=== PATIENT | female | born 1960 | race Caucasian/White ===

== ENCOUNTER 2020-04-10 08:52 | Outpatient (CLI) | payer OTHER, SELFPAY ==
[2020-04-10 09:16] LABS: Basophils Absolute Auto 0.11 K/mm3 (0.00-0.10); Basophils Percent Auto 1.4 % (0.0-1.0); Eosinophils Absolute Auto 0.33 K/mm3 (0.02-0.50); Eosinophils Percent Auto 4.2 % (1.0-6.0); Hematocrit 42.5 % (35.0-49.0); Hemoglobin 13.7 g/dL (12.0-15.0); Immature Granulocyte Absolute 0.03 K/mm3 (0.00-0.00); Immature Granulocyte Percent A 0.4 % (0.0-0.0); Lymphocytes Absolute Auto 2.22 K/mm3 (1.10-4.50); Lymphocytes Percent Auto 28.2 % (18.0-42.0); Mean Corpuscular HGB Conc 32.2 g/dL (32.0-36.0); Mean Corpuscular Hemoglobin 29.8 pg (27.0-31.0); Mean Corpuscular Volume 92.4 fL (78.0-102.0); Mean Platelet Volume 9.7 fl (9.2-11.8); Monocytes Absolute Auto 0.57 K/mm3 (0.10-0.90); Monocytes Percent Auto 7.2 % (2.0-11.0); Neutrophils Absolute Auto 4.6 K/mm3 (1.7-7.2); Neutrophils Percent Auto 58.6 % (50.0-70.0); Platelet Count Result 180 K/mm3 (150-420); Red Cell Distribution Width 12.6 % (11.6-14.4); White Blood Count 7.9 K/mm3 (4.8-10.8)
[2020-04-10 09:39] LABS: Alanine Aminotransferase 24 U/L (14-59); Albumin Level 3.9 g/dL (3.4-5.0); Alkaline Phosphatase 89 U/L (46-116); Anion Gap 8 mmol/L (8-16); Aspartate Amino Transferase 25 U/L (15-37); Bilirubin,Total 0.4 mg/dL (0.00-1.00); Blood Urea Nitrogen 10 mg/dL (7-18); Calcium 9.1 mg/dL (8.5-10.1); Carbon Dioxide 28 mmol/L (21-32); Chloride 102 mmol/L (98-108); Cholesterol 293 mg/dL (0-200); Estimated Glomerular Filt Rate > 60; Glucose 100 mg/dL (70-99); HDL Direct 59 mg/dL (40-60); LDL Cholesterol Calculated 187 mg/dL (<130); Osmolality Calculated 285 mOsm/kg (285-295); Potassium 4.1 mmol/L (3.5-5.1); Sodium 138 mmol/L (136-145); Total Protein 7.1 g/dL (6.4-8.2); Triglycerides 236 mg/dL (0-150)
== END 2020-04-10 08:53 | disposition home or self-care (01) ==
LOC: CHSLAB 08:54
PROVIDERS: PCP Nurse Practitioner Family; Visit Provider Nurse Practitioner Family
DX: I10 Essential (primary) hypertension (principal)
CPT/HCPCS: 36415; 80053; 80061; 85025

== ENCOUNTER → 2020-04-29 10:55 | Outpatient (CLI) | payer OTHER, SELFPAY ==
--- NOTE | ~2020-04-29 | MM_ITS ---
EXAMINATION: MM screening terri BI w beena HISTORY: Screening mammogram TECHNIQUE: Craniocaudal and mediolateral oblique 3-D tomosynthesis images were obtained and synthetic 2-D images were generated. CAD analysis was submitted and interpreted. COMPARISON: 11/28/2017, 09/20/2016, 08/13/2015 bilateral digital screening mammogram examinations BREAST PARENCHYMAL COMPOSITION: There are scattered areas of fibroglandular density. FINDINGS: There is no evidence of suspicious mass, calcification, or architectural distortion to sugg est malignancy in either breast. There has been no suspicious interval change. IMPRESSION: 1. No mammographic evidence of malignancy. 2. Recommend routine screening mammography in one year. BI-RADS Category 1: Negative Reviewed, dictated and finalized at location A.
== END ==
PROVIDERS: PCP Nurse Practitioner Family; Visit Provider Nurse Practitioner Family
DX: Z12.31 Encounter for screening mammogram for malignant neoplasm of breast (principal)
CPT/HCPCS: 77063; 77067

== ENCOUNTER 2020-05-10 16:20 | Outpatient (CLI) | payer OTHER, SELFPAY ==
--- NOTE | ~2020-05-10 | XR_ITS ---
EXAMINATION: XR_[id number]_CR DATE: 05/10/2020 16:39 INDICATION: Cervical radiculopathy. TECHNIQUE: 3 views of cervical spine on 4 radiographs were obtained. COMPARISON: Cervical spine radiographs 03/27/2013 FINDINGS: There is 6 degrees dextrocurvature of cervical spine. There is kyphosis of cervical spine. There is 2 mm retrolisthesis of C5 on C6. Vertebral body heights are normal. There is mildly decrease d disc height at C4-C5, moderately decreased disc height at C5-C6, and mildly decreased disc height a t C6-C7. There is severe bilateral uncovertebral joint osteoarthritis at C5-C6 and C6-C7. The facet j oints are unremarkable. There is mild central canal stenosis at C5-C6. No prevertebral soft tissue sw elling. IMPRESSION: 1. Moderate cervical spondylosis. Reviewed, dictated and finalized at location A. RGLASS ROVING WINDER
== END 2020-05-10 16:21 | disposition home or self-care (01) ==
LOC: CHSIMG 16:25
PROVIDERS: PCP Nurse Practitioner Family; Visit Provider Family Medicine
DX: M54.12 Radiculopathy, cervical region (principal)
CPT/HCPCS: 72040

== ENCOUNTER 2020-05-11 15:01 | Outpatient (RCR) | payer OTHER, SELFPAY ==
--- NOTE | 2020-05-25 16:09 | PCPTNOTE ---
patient called and cancelled appt today. JN
--- NOTE | 2020-06-10 16:38 | PTOPEVAL ---
Thank you for referring Santiago Medina to [facility].? The patient is scheduled to be seen for therapy? ____x/week for ___ weeks. Please review, sign, date and return this plan of care PAVITHRA. I agree with and certify that the following plan of care is medically necessary. Referring Physician Date Admitting Provider: Attending Provider: Marcin Flores DO Referring Provider: *PT Outpatient Evaluation Start: 05/11/20 15:20 Freq: Status: Active Protocol: Document 05/11/20 15:20 [facility] (Rec: 05/11/20 16:11 [facility] [id number]) Therapy Assessment Status Assessment Status Assessment Status Evaluation Evaluation Information Problem Diagnosis cervical radiculopathy Onset 05/06/20 Additional Evaluation Detail NDI = 20% functionally declined Subjective Information patient reports she has been Query Text:As Reported By Patient/ having pain in the neck and Family down the L arm for a while, but reports it has gotten worse in the past 3 months. she reports the pain will go down her arm all the way to the tips of her fingers. she reports the tingling will hit all fingers. she reports all the time in the 1st 2 digits, but worse in the last 3 digits at times. she reports she has increased pain with looking over her L shoulder such as while driving, looking over her shoulder to talk to a person, and while looking over he shoulder at her desk at work. she reports she has an adjustable height desk. she reports she has been to therapy in the past for her sciatic nerve. Prior Level of Function Comments Additional Prior Level of Function patient reports she has had Comments issues with her neck for about 10 years or so. however, she reports until recently she has mostly dealt with symptoms that would come and go. patient reports she does experience headaches (worse after work/later in the day). Pain Assessment Timing of Pain Assessment Timing of Pain Assessment
--- NOTE | 2020-07-07 13:20 | PTOPEVAL ---
Thank you for referring Santiago Medina to [facility].? The patient is scheduled to be seen for therapy? ____x/week for ___ weeks. Please review, sign, date and return this plan of care PAVITHRA. I agree with and certify that the following plan of care is medically necessary. Referring Physician Date Admitting Provider: Attending Provider: Marcin Flores DO Referring Provider: *PT Outpatient Evaluation Start: 05/11/20 15:20 Freq: Status: Active Protocol: Document 06/22/20 16:00 [facility] (Rec: 07/07/20 10:26 [facility] [id number]) Therapy Assessment Status Assessment Status Assessment Status Re-evaluation Evaluation Information Problem Diagnosis cervical radiculopathy Subjective Information patient reports she feels Query Text:As Reported By Patient/ alright this date. she Family reports she has less pain in the neck and nearly no symptoms down her L arm any longer. Pain Assessment Timing of Pain Assessment Timing of Pain Assessment Assessment Pain Scale Pain Scale Used Numeric (1 - 10) Self Report Pain Assessment Neck Reported Pain Level 1 Pain Score Pain Score 1: Self Report Additional Pain Score Comments patient treatment supervised by Cathryn Wilson PTA this date. Interventions Used Interventions Used By Clinicians Activity or ADL's,Education, Electrical Stimulation, Exercise,Heat,Manual Therapy Techniques Cervical and Lumbar ROM Cervical ROM Cervical Flexion (0-60) 50 Query Text:Active in Degrees Cervical Extension (0-70) 40 Query Text:Active in Degrees Cervical Lateral Flexion Right (0-50) 30 Query Text:Active in Degrees Cervical Lateral Flexion Left (0-50) 30 Query Text:Active in Degrees Cervical Rotation Right (0-90) 70 Query Text:Active in Degrees Cervical Rotation Left (0-90) 55 Query Text:Active in Degrees Cervical and Lumbar Muscle Testing Cervical Muscle Testing Cervical Flexion 4 Good Cervical Extension 4 Good Cervical Lateral Flexion Right 4+ Good+ Cervical Lateral Flexion Left 4+ Good+ Deep Cervical Flexion 4/5 Muscle Length Testing Muscle Length Testing Upper Trapezius Muscle Length (L) Mild Tightness General Exercise General Exercises Exercise Description see Cathryn Wilson Documentation. Query Text:Record Sets, Reps, Resistance, and Position PT Clinical Summary Clinical Summary Protocol: PTEVCODE PT Clinical Summary mrs. medina tolerates therapy well this date. she repo
== END 2020-07-07 09:47 | disposition home or self-care (01) ==
LOC: CHSPT 15:01
PROVIDERS: PCP Family Medicine; Visit Provider Family Medicine
DX: M54.12 Radiculopathy, cervical region (principal)
CPT/HCPCS: 97012; 97014; 97110; 97140; 97161; G0283

== ENCOUNTER 2020-08-11 17:39 | Outpatient (NON) | payer OTHER, SELFPAY | END 2020-08-11 17:40 | LOC: CHSLAB 17:40 | PROVIDERS: Visit Provider Nurse Practitioner Family | DX: Z12.4 Encounter for screening for malignant neoplasm of cervix (principal); Z13.89 Encounter for screening for other disorder | CPT/HCPCS: 87491; 87591; 88175; G0145 ==

== ENCOUNTER → 2021-05-27 16:38 | Outpatient (CLI) | payer OTHER, SELFPAY ==
--- NOTE | ~2021-05-27 | MM_ITS ---
EXAMINATION: MM screening [facility] BI w beena HISTORY: Screening mammogram TECHNIQUE: Craniocaudal and mediolateral oblique 3-D tomosynthesis images were obtained and synthetic 2-D images were generated. CAD analysis was submitted and interpreted. COMPARISON: 04/29/2020, 11/28/2017 BREAST PARENCHYMAL COMPOSITION: The breasts are heterogeneously dense, which may obscure small masses . FINDINGS: There is no evidence of suspicious mass, calcification, or architectural distortion to sugg est malignancy in either breast. There has been no suspicious interval change. IMPRESSION: 1. No mammographic evidence of malignancy. 2. Recommend routine screening mammography in one year. BI-RADS Category 1: Negative Reviewed, dictated and finalized at location A. T METAL FABRICATOR
== END ==
PROVIDERS: Visit Provider Nurse Practitioner Family
DX: Z12.31 Encounter for screening mammogram for malignant neoplasm of breast (principal)
CPT/HCPCS: 77063; 77067

== ENCOUNTER 2022-01-21 07:23 | Outpatient (CLI) | payer OTHER, SELFPAY ==
[2022-01-21 08:02] LABS: SARS-CoV-2 Ag Positive (Negative)
[2022-01-21 08:18] LABS: SARS-CoV-2 RNA PCR Positive (Negative)
[2022-01-21 11:45] LABS: Cholesterol 154 mg/dL (0-200); HDL Direct 62 mg/dL (40-60); LDL Cholesterol Calculated 72 mg/dL (<130); Triglycerides 101 mg/dL (0-150)
== END 2022-01-21 07:24 | disposition home or self-care (01) ==
PROVIDERS: PCP Nurse Practitioner Family; Visit Provider Nurse Practitioner Family
DX: U07.1 COVID-19 (principal); E78.1 Pure hyperglyceridemia; E78.5 Hyperlipidemia, unspecified
CPT/HCPCS: 36415; 80061; 87426; C9803; U0003; U0005

== ENCOUNTER 2022-08-08 08:29 | Outpatient (CLI) | payer OTHER, SELFPAY ==
--- NOTE | ~2022-08-08 | DEXA_ITS ---
Bone Density Report Name: BLACK SÁNCHEZ Age: 62 Sex: Female Ethnicity: White Date of : 1960 Indication: postmenopausal; screening for osteoporosis; asthma or emphysema; Referring Provider: Kimberley Foster Study: Bone densitometry was performed. Exam Date: August 08, 2022 Accession number: [id number] Bone Density: Region BMD T-score Z-score Classification AP Spine(L2, L3, L4) 0.888 -1.7 -0.3 Osteopenia Femoral Neck (Left) 0.655 -1.8 -0.5 Osteopenia Total Hip (Left) 0.829 -0.9 0.0 Normal Femoral Neck (Right) 0.646 -1.8 -0.5 Osteopenia Total Hip (Right) 0.832 -0.9 0.1 Normal Femoral Neck Mean 0.650 -1.8 -0.5 Osteopenia Total Hip Mean 0.831 -0.9 0.0 Normal World Health Organization criteria for BMD impression classify patients as: Normal (T-score at or above -1.0), Osteopenia (T-score between -1.0 and -2.5), or Osteoporosis (T-score at or below -2.5). 10-year Fracture Risk(1): Major Osteoporotic Fracture 8.8% Hip Fracture 0.9% Reported Risk Factors: [place] (), Neck BMD=0.646, BMI=29.6 (1) FRAX(R) Version 3.08. Fracture probability calculated for an untreated patient. Fracture probability may be lower if the patient has received treatment. Clinical Information Provided by Patient: Has used the following medications: Vitamin D Has the following medical conditions: Asthma or Emphysema Patient maximum height was 62 Menopause Age: 62 No regular weight bearing exercise Does not regularly consume dairy products Onset of menses at age 14 Number of children 3 Impression: The patient has low bone mass, based on the Left Femoral Neck T-score. Discussion: BONE DENSITY IS LOW AT ONE OR MORE SKELETAL SITES. This patient's lowest T-score is low at one or more skeletal sites. It meets the World Health Organization's (WHO) criteria for ?low bone mass? (T-score between -1.0 and -2.5). The patient's 10-year risk of fracture as calculated by FRAX is less than the threshold where pharmacological therapy is recommended by the National Osteoporosis Foundation (NOF). However, all treatment decisions require clinical judgment and consideration of individual patient factors, including patient preferences, comorbidities, previous drug use, risk factors not captured in the FRAX model (e.g., frailty, falls, vitamin D deficiency, increased bone turnover, interval significant decline in bone density) and possible under or overestimation of fracture risk by FRAX. The patient should follow a healthful lifestyle (good nutrition with adequate calcium and vitamin D, and appropriate weight-bearing exercise). Follow-Up: Consider repeating this study in 2 to 3 years to reassess this patient's status, or sooner if there is some new clinical indication. Reported by: Dr. Rogers
== END 2022-08-08 08:30 | disposition home or self-care (01) ==
LOC: CHSIMG 08:31
PROVIDERS: PCP Nurse Practitioner Family; Visit Provider Obstetrics & Gynecology Gynecology
DX: Z78.0 Asymptomatic menopausal state (principal); M85.89 Other specified disorders of bone density and structure, multiple sites
CPT/HCPCS: 77080

== ENCOUNTER → 2022-08-17 15:03 | Outpatient (CLI) | payer OTHER, SELFPAY ==
--- NOTE | ~2022-08-17 | MM_ITS ---
EXAMINATION: MM screening terri BI w beena HISTORY: Screening mammogram TECHNIQUE: Craniocaudal and mediolateral oblique 3-D tomosynthesis images were obtained and synthetic 2-D images were generated. CAD analysis was submitted and interpreted. COMPARISON: 05/27/2021, 04/29/2020, 11/28/2017 bilateral screening mammogram examinations BREAST PARENCHYMAL COMPOSITION: The breasts are heterogeneously dense, which may obscure small masses . FINDINGS: There is no evidence of suspicious mass, calcification, or architectural distortion to sugg est malignancy in either breast. There has been no suspicious interval change. IMPRESSION: 1. No mammographic evidence of malignancy. 2. Recommend routine screening mammography in one year. BI-RADS Category 1: Negative Reviewed, dictated and finalized at location A. LOGY LABORATORY MANAGER
== END ==
PROVIDERS: PCP Nurse Practitioner Family; Visit Provider Nurse Practitioner Family
DX: Z12.31 Encounter for screening mammogram for malignant neoplasm of breast (principal)
CPT/HCPCS: 77063; 77067

== ENCOUNTER 2022-10-09 07:31 | Day surgery (SDC) | payer OTHER, SELFPAY ==
[2022-08-29 08:23] VITALS: BMI 30.8
[2022-09-25 14:22] VITALS: BMI 29.8
--- NOTE | 2022-10-09 07:34 | WPDANESEPPF ---
Anes - Initial Pre Proc Eval Procedure: Operation Date: 10/09/22 08:30 Proposed Procedures p Diagnostic Colonoscopy - Shawn Nuñez MD Date/Time: 10/09/22 07:34 Surgeon: Shawn Nuñez MD Pre Op Diagnosis: History of Colon Polyps Patient Data Age: 62 Gender: F Height: 1.57 m Weight: 74 kg Allergies Allergy/AdvReac Type Severity Reaction Status Date / Time codeine Allergy Intermediate Rash Verified 10/09/22 07:47 Penicillins Allergy Intermediate Rash Verified 10/09/22 07:47 propoxyphene Allergy Mild n/v Verified 10/09/22 07:47 morphine Allergy Unknown Rash Verified 10/09/22 07:47 Sulfa (Sulfonamide Allergy Unknown Rash Verified 10/09/22 07:47 Antibiotics) Home Medications Medication Instructions Recorded Confirmed Type albuterol sulfate 90 mcg/actuation 1 inhalation inhalation Q4-6H PRN 05/21/19 09/25/22 Rx breath activated powder inhaler shortness of breath or wheezing #1 ea ergocalciferol (vitamin D2) 1,250 1,250 mcg PO WEEKLY 10/03/21 09/25/22 History mcg (50,000 unit) capsule hydrocortisone acetate 25 mg 25 mg RECTAL BID #24 ea 10/03/21 09/05/22 Rx rectal suppository (Anusol-HC) linaclotide 290 mcg capsule See Rx Instructions .Route 10/31/21 09/25/22 Rx (Linzess) .COMPLEX #30 caps valacyclovir 500 mg tablet 500 mg PO BID 3 days #6 tabs 07/04/22 09/25/22 Rx fluoxetine 40 mg capsule See Rx Instructions .Route 08/04/22 09/25/22 Rx .COMPLEX #90 caps sodium,potassium,mag sulfates 17.5 See Rx Instructions PO .COMPLEX 08/29/22 09/05/22 Rx gram-3.13 gram-1.6 gram oral soln #354 mL (Suprep Bowel Prep Kit) aspirin 81 mg tablet,delayed 81 mg PO DAILY 09/25/22 09/25/22 History release ezetimibe 10 mg tablet 10 mg PO DAILY 09/25/22 09/25/22 History spironolactone 100 mg tablet 100 mg PO DAILY 09/25/22 09/25/22 History Patient hx anesthesia problems: none Family hx anesthesia problems: none Results Review: All pre-operative results and documents have been reviewed as part of the pre-operative evaluation. [facility] Past Medical History Medical History (Updated 10/09/22 @ 07:35 by Romario Snyder MD) Asthma ALEJANDRA (generalized anxiety disorder) GERD without esophagitis HSV-1 infection Hypertension Marijuana smoker Obese Surgical History Surgical History History of carpal tunnel surgery (~1997) History of cholecystectomy (~08/2012) History of hysterectomy (~02/2001) Partial History of tonsillectomy (~1967) Family History Family History Grandparent Family history of obesity Family history of alcoholism Cerebrovascular accident Diabetes mellitus Lung cancer Mother Hypertension Family history of eczema Patient's mother is in good health Family history of arthritis Acute myocardial infarction Sibling Hypertension Family history of eczema Patient's brother is in good health Family history of irritable bowel syndrome Father Patient's father is in good health Family history of arthritis Mother Acute myocardial infarction Hypertension Other Asthma Family history of allergic disorder Family history of cardiovascular disease Family history of gout Family history of malignant neoplasm Family history of malignant neoplasm of breast Social History Social History Smoking status: Never smoker Tobacco type: cigarettes Smoking end date: 04/08/13 Alcohol intake: never Substance use: never Substance use type: does not use Living arrangements: with family Gender identity (if verbalized by the patient): Female Spiritual care concerns: No Anes - Eval Final PreProcedure Day of Procedure 10/09/22 07:34 Patient weight: overweight Heart: regular rate and rhythm Lungs: clear to auscultation and normal air movement Airway: Mallampati scale class II Neurological
[2022-10-09 07:45] VITALS: BP 117/86; PULSE 84; RESP 16; TEMP 37.4; O2SAT 98
[2022-10-09] MEDS: LACTATED RINGERS 1,000 ML 150 ML IV CONT (08:00)
--- NOTE | 2022-10-09 08:28 | PM.HPGS ---
History of Present Illness History of Present Illness Consent: Risks, benefits, and alternatives have been discussed and questions answered. Patient agrees to proceed with procedure. Chief complaint: History of Colon Polyps Narrative: Santiago Medina is a 62 year old female Presents for screening colonoscopy. Patient does have a prior history of colon polyps. Most recent colonoscopy was 6 years ago. Patient reports that her current weight and appetite are normal. Patient does have a tendency towards constipation. She occasionally has bright red blood per rectum with wiping that she attributes to hemorrhoids. Family history is Significant the both mother and father have had colon polyps.. Patient presents today for screening colonoscopy. Review of Systems Review of Systems: Review of systems noncontributory. [facility] Past Medical History Medical History (Updated 10/09/22 @ 08:30 by Shawn Nuñez MD) Asthma ALEJANDRA (generalized anxiety disorder) GERD without esophagitis HSV-1 infection Hypertension Marijuana smoker Obese Surgical History Surgical History History of carpal tunnel surgery (~1997) History of cholecystectomy (~08/2012) History of hysterectomy (~02/2001) Partial History of tonsillectomy (~1967) Family History Family History Grandparent Family history of obesity Family history of alcoholism Cerebrovascular accident Diabetes mellitus Lung cancer Mother Hypertension Family history of eczema Patient's mother is in good health Family history of arthritis Acute myocardial infarction Sibling Hypertension Family history of eczema Patient's brother is in good health Family history of irritable bowel syndrome Father Patient's father is in good health Family history of arthritis Mother Acute myocardial infarction Hypertension Other Asthma Family history of allergic disorder Family history of cardiovascular disease Family history of gout Family history of malignant neoplasm Family history of malignant neoplasm of breast Social History Social History Smoking status: Never smoker Tobacco type: cigarettes Smoking end date: 04/08/13 Alcohol intake: never Substance use: never Substance use type: does not use Living arrangements: with family Gender identity (if verbalized by the patient): Female Spiritual care concerns: No Meds Home Medications and Allergies Home Medications Medication Instructions Recorded Confirmed Type albuterol sulfate 90 mcg/actuation 1 inhalation inhalation Q4-6H PRN 05/21/19 10/09/22 Rx breath activated powder inhaler shortness of breath or wheezing #1 ea ergocalciferol (vitamin D2) 1,250 1,250 mcg PO WEEKLY 10/03/21 10/09/22 History mcg (50,000 unit) capsule hydrocortisone acetate 25 mg 25 mg RECTAL BID #24 ea 10/03/21 10/09/22 Rx rectal suppository (Anusol-HC) linaclotide 290 mcg capsule See Rx Instructions .Route 10/31/21 10/09/22 Rx (Linzess) .COMPLEX #30 caps valacyclovir 500 mg tablet 500 mg PO BID 3 days #6 tabs 07/04/22 10/09/22 Rx fluoxetine 40 mg capsule See Rx Instructions .Route 08/04/22 10/09/22 Rx .COMPLEX #90 caps sodium,potassium,mag sulfates 17.5 See Rx Instructions PO .COMPLEX 08/29/22 10/09/22 Rx gram-3.13 gram-1.6 gram oral soln #354 mL (Suprep Bowel Prep Kit) aspirin 81 mg tablet,delayed 81 mg PO DAILY 09/25/22 10/09/22 History release ezetimibe 10 mg tablet 10 mg PO DAILY 09/25/22 10/09/22 History spironolactone 100 mg tablet 100 mg PO DAILY 09/25/22 10/09/22 History Allergies Allergy/AdvReac Type Severity Reaction Status Date / Time codeine Allergy Intermediate Rash Verified 10/09/22 07:47 Penicillins Allergy Intermediate Rash Verified 10/09/22 07:47 propoxyphene Allergy Mild n/v Verified 10/09/22 07:47 mor
[2022-10-09 09:00] VITALS: BP 110/79; PULSE 75; RESP 16; O2SAT 96
[2022-10-09 09:10] VITALS: BP 125/95; PULSE 69; RESP 16; O2SAT 99
[2022-10-09 09:20] VITALS: BP 107/78; PULSE 70; RESP 16; O2SAT 100
--- NOTE | 2022-10-09 09:20 | SUR.PHASEII ---
0910; PT AWAKE AND ALERT. SITTING UPRIGHT ON STRETCHER. TALKATIVE. EATING AND DRINKING. DENIES PAIN OR NAUSEA.
--- NOTE | 2022-10-09 09:52 | SUR.PHASEII ---
SPOKE TO DR EUCEDA, HE SENT A SCRIPT FOR PT'S LINZESS TO HER PHARMACY
--- NOTE | 2022-10-09 14:57 | WPDANESPN ---
Anes - Prog Note Post-Op Date/Time: 10/09/22 14:57 Cardiovascular status: normal Respiratory status: normal Airway patency: baseline Mental status: baseline Post-Op hydration status: normal Vital Signs: Last Vital Signs Temp 37.4 C 10/09/22 07:45 Pulse 70 10/09/22 09:20 Resp 16 10/09/22 09:20 BP 107/78 10/09/22 09:20 Pulse Ox 100 10/09/22 09:20 O2 Del Method Room Air 10/09/22 09:20 Pain Score (VAS): 0 I/O: Intake & Output 10/08/22 10/09/22 10/09/22 23:59 07:59 15:59 Intake Total 100 Balance 100 Post-procedural complaints: none Patient Feedback: Patient satisfied with anesthetic care.
== END 2022-10-09 09:42 | disposition home or self-care (01) ==
PROVIDERS: Visit Provider Internal Medicine Gastroenterology
PROC: 0DJD8ZZ Inspection of Lower Intestinal Tract, Via Natural or Artificial Opening Endoscopic (ICD-10-PCS; CPT 45378; principal; 2022-10-09 08:30)
DX: Z86.010 Personal history of colon polyps (principal)
CPT/HCPCS: 45380

== ENCOUNTER 2022-10-09 09:00 | Outpatient (NON) | payer OTHER, SELFPAY | END 2022-10-09 09:01 | disposition home or self-care (01) | LOC: ANHLAB 10-10 07:54 | PROVIDERS: Visit Provider Internal Medicine Gastroenterology | DX: K63.5 Polyp of colon (principal) | CPT/HCPCS: 88305 ==

== ENCOUNTER 2023-02-09 08:18 | Outpatient (CLI) | payer OTHER, SELFPAY ==
[2023-02-20 19:49] VITALS: BMI 33.5
--- NOTE | 2023-02-20 19:49 | WPDHOMESLEEP ---
Sleep Study - Home Unattended Date of Study: 02/09/23 Ordering Provider: Marcin Flores DO Interpreting Provider: Makayla Patel DO Home Sleep Study Type: Watch PAT Height: 1.57 m Weight: 83.007 kg Body Mass Index: 33.5 Neck Circumference (inches): 16 [place]: 10 Reason for Sleep Study Snoring, nocturnal gasping Sleep History The patient is a 62-year-old female with anxiety, hyperlipidemia, vitamin-D deficiency, irritable bowel syndrome, herpes simplex virus, obesity and history of tobacco use that had a sleep study ordered by her primary care physician for evaluation of sleep apnea. The patient occasionally awakens from sleep short of breath. She frequently awakens at night with heartburn, belching or cough. She frequently snores and is frequently loud enough that others complain. She constantly has trouble sleeping when she has a cold. She occasionally wakes up gasping for air throughout the night. She occasionally has breathing problems at night observed by herself or others. She occasionally sweats excessively at night. She rarely has heart palpitations or irregular heartbeats during the night. He rarely falls asleep during the day but never while driving. She rarely has trouble at school or work due to sleepiness. She rarely feels unable to move while waking up or falling asleep. He frequently experiences vivid dreamlike scenes upon awakening or falling asleep. She rarely feels afraid of going she frequently has nightmares frequently remembers her dreams. She occasionally has thoughts racing through her mind. She frequently feels sad or depressed and occasionally has anxiety. She constantly has muscular tension. She constantly notices parts of her body jerk. She frequently kicks during the night. She occasionally has crawling and aching feelings in her legs and occasionally has leg pain during the night. She rarely awakens with morning jaw pain. She is frequently bothered by pain during the day and occasionally awakened by pain during the night. She constantly wakes up feeling stiff in the morning. She constantly wakes up with sore or achy muscles. She constantly wakes up with pain in the neck, spine or other joints. She goes to bed at 8:00 p.m. on weekdays and at 9:00 p.m. on weekends. It takes her 2-5 minutes to fall asleep. She wakes up at least twice throughout the night for unknown reasons and a can take minutes to hours to fall back asleep. She wakes up at 6:00 a.m. on both weekdays and weekends. She will stay in bed for a few minutes after waking up in the morning. She currently lives with her . She denies consuming any caffeinated beverages within 2 hours of bedtime. She denies engaging in physical exercise before bedtime. She will read and watch television before falling asleep. She denies taking naps in the afternoon or the evening. She quit smoking cigarettes 11 years ago. She denies tobacco, alcohol and recreational drug use. [facility] Past Medical History Medical History Asthma ALEJANDRA (generalized anxiety disorder) GERD without esophagitis HSV-1 infection Hypertension Marijuana smoker Obese Surgical History Surgical History History of carpal tunnel surgery (~1997) History of cholecystectomy (~08/2012) History of hysterectomy (~02/2001) Partial History of tonsillectomy (~1967) Family History Family History Grandparent Family history of obesity Family history of alcoholism Cerebrovascular accident Diabetes mellitus Lung cancer Mother Hypertension Family history of eczema Patient's mother is in good health Family history of arthritis Acute myocardial infarction Sibling Hypertension Family history of eczema Patient's brother is in good health Family history of irritable bowel syndrome Father
== END 2023-02-12 10:00 | disposition home or self-care (01) ==
LOC: ANHCSM 08:19
PROVIDERS: PCP Family Medicine; Visit Provider Family Medicine
DX: G47.10 Hypersomnia, unspecified (principal)
CPT/HCPCS: 95800

== ENCOUNTER 2023-03-14 14:28 | Outpatient (CLI) | payer OTHER, SELFPAY ==
--- NOTE | ~2023-03-14 | XR_ITS ---
AP view of the pelvis and AP and lateral views of the bilateral hips Clinical history: Pain Findings: No acute fracture or dislocation is seen. Osseous alignment is anatomic. Bilateral hip and SI joint spaces are preserved. Soft tissues are unremarkable. Impression: No significant abnormality is seen. Reviewed, dictated and finalized at location . Impression: No significant abnormality is seen.
== END 2023-03-14 14:29 | disposition home or self-care (01) ==
LOC: CHSIMG 14:29
PROVIDERS: PCP Family Medicine; Visit Provider Family Medicine
DX: M25.551 Pain in right hip (principal); M25.552 Pain in left hip
CPT/HCPCS: 73521

== ENCOUNTER 2023-03-19 16:15 | Outpatient (RCR) | payer OTHER, SELFPAY ==
--- NOTE | 2023-03-19 17:54 | OPREHPOC ---
Outpatient Therapy Plan of Care This is a Multidisciplinary Plan of Care that may contain components documented by all disciplines (PT, OT, and ST.) PT Problem 1 PT Problem #1 Knowledge Deficit PT Goal 1 Goal Patient to demonstrate independence with HEP Target Visit 12 PT Problem 2 PT Problem #2 Pain PT Goal 1 Goal 1. Patient to report highest pain at 2/10 2. Patient to report no sleep disturbance due to back and hip pain Target Visit 12 PT Problem 3 PT Problem #3 Impaired Strength PT Goal 1 Goal Patient to demonstrate 5/5 B hip sterngth to return to house hold tasks at PLOF Target Visit 12 PT Problem 4 PT Problem #4 Impaired Flexibility PT Goal 1 Goal Patient to demonstrate 20 deg of B HS length and mild limitation of piriformis and hip flexors to improve ability to sit at her desk without increase in pain Target Visit 12
--- NOTE | 2023-03-19 17:54 | PTOPEVAL1 ---
Assessment and note entered by Martine Lundy DPT Evaluation Information Assessment Status Evaluation Diagnosis B hip pain, low back pain Onset 03/15/23 Subjective Information Patient reports B hip pain with L>R in December 2022. She does not recall an injury but states both hip have been hurting with sciatic pain starting about 3 weeks ago. Patient reports pain is worse with rolling in bed, sitting for long periods of time, and performing heavy house hold chores. 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 x-rays of B hips are negative. Reported Pain Level Pain Score 2,4,3: Self Report Assessment PT Clinical Summary Patient is a 62 year old female who presents to PT with low back and B hip pain. Patient demonstrates decreased B hip strength, decreased B LE flexibility and hypo mobility of the lumbar spine limiting her ability to sit at her desk for work, rolling in bed and completing heaving house hold tasks. She would benefit from skilled PT to address impairments and return to PLOF. Plan of Care Interventions Electrical Stimulation,Gait Training,Hot Pack/Cold Pack,Manual Therapy,Mechanical Traction,Neuro Re- education,Patient/Caregiver Educati,Therapeutic Activities,Therapeutic Exercise PT Services Indicated Yes Treatment Frequency and 2x weekly for 12 visits Duration These treatments will address the objective and functional deficits as defined above. The patient will be advanced safely and appropriately in order for the patient to progress towards his/her prior level of function. Additional exercises will be introduced and as well as a comprehensive home exercise program upon discharge, if needed, ?to ensure carryover of functional gains achieved in the clinic. This treatment plan has been reviewed and agreement upon by the patient.
== END 2023-03-27 13:22 | disposition home or self-care (01) ==
LOC: CHSPT 16:15
PROVIDERS: PCP Family Medicine; Visit Provider Family Medicine
DX: M25.551 Pain in right hip (principal); M25.552 Pain in left hip
CPT/HCPCS: 97014; 97110; 97161; 97530; G0283

== ENCOUNTER 2023-04-03 08:50 | Outpatient (CLI) | payer OTHER, SELFPAY ==
[2023-04-03 10:10] LABS: Creatinine Urine 186.77 mg/dL (40-278); MALB Creatinine Ratio 6.9 mg/g (0-30); Microalbumin Urine Random < 13.0 mg/L
[2023-04-03 10:23] LABS: Hemoglobin A1C 5.6 % (<5.7)
[2023-04-03 10:30] LABS: Anion Gap 10 mmol/L (8-16); Blood Urea Nitrogen 6 mg/dL (7-18); Calcium 9.4 mg/dL (8.5-10.1); Carbon Dioxide 23 mmol/L (21-32); Chloride 104 mmol/L (98-108); Cholesterol 206 mg/dL (0-200); Estimated Glomerular Filt Rate > 60; Glucose 95 mg/dL (70-99); HDL Direct 54 mg/dL (40-60); LDL Cholesterol Calculated 123 mg/dL (<130); Osmolality Calculated 281 mOsm/kg (285-295); Potassium 4.4 mmol/L (3.5-5.1); Sodium 137 mmol/L (136-145); Triglycerides 147 mg/dL (0-150)
[2023-04-07 23:55] LABS: Lipoprotein A <10 nmol/L (<75)
== END 2023-04-03 08:51 | disposition home or self-care (01) ==
LOC: CHSLAB 08:53
PROVIDERS: PCP Family Medicine; Visit Provider Internal Medicine Cardiovascular Disease
DX: I44.4 Left anterior fascicular block (principal); R91.1 Solitary pulmonary nodule; R05.9 Cough, unspecified; I70.0 Atherosclerosis of aorta; I51.9 Heart disease, unspecified; I25.10 Atherosclerotic heart disease of native coronary artery without angina pectoris; E53.8 Deficiency of other specified B group vitamins; Z13.9 Encounter for screening, unspecified; E61.1 Iron deficiency; E55.9 Vitamin D deficiency, unspecified
CPT/HCPCS: 36415; 80048; 80061; 82043; 83036; 83695

== ENCOUNTER 2023-09-26 14:53 | Outpatient (CLI) | payer OTHER, SELFPAY ==
[2023-09-26 15:07] LABS: Basophils Absolute Auto 0.12 K/mm3 (0.00-0.10); Eosinophils Absolute Auto 0.36 K/mm3 (0.02-0.50); Eosinophils Percent Auto 2.9 % (1.0-6.0); Hematocrit 43.9 % (35.0-49.0); Hemoglobin 14.6 g/dL (12.0-15.0); Immature Granulocyte Absolute 0.07 K/mm3 (0.00-0.00); Immature Granulocyte Percent A 0.6 % (0.0-0.0); Lymphocytes Absolute Auto 1.86 K/mm3 (1.10-4.50); Lymphocytes Percent Auto 15.2 % (18.0-42.0); Mean Corpuscular HGB Conc 33.3 g/dL (32-36); Mean Corpuscular Hemoglobin 31.1 pg (27.0-31.0); Mean Corpuscular Volume 93.4 fL (78.0-102.0); Mean Platelet Volume 9.2 fl (9.2-11.8); Monocytes Absolute Auto 0.97 K/mm3 (0.10-0.90); Monocytes Percent Auto 7.9 % (2.0-11.0); Neutrophils Absolute Auto 8.89 K/mm3 (1.70-7.20); Neutrophils Percent Auto 72.4 % (50.0-70.0); Platelet Count Result 191 K/mm3 (150-420); Red Cell Distribution Width 12.6 % (11.6-14.4); White Blood Count 12.3 K/mm3 (4.8-10.8)
[2023-09-26 15:42] LABS: Alanine Aminotransferase 19 U/L (14-59); Alkaline Phosphatase 93 U/L (46-116); Anion Gap 14 mmol/L (8-16); Aspartate Amino Transferase 17 U/L (15-37); Bilirubin,Total 0.4 mg/dL (0.00-1.00); Blood Urea Nitrogen 16 mg/dL (7-18); Calcium 9.5 mg/dL (8.5-10.1); Carbon Dioxide 26 mmol/L (21-32); Chloride 101 mmol/L (98-108); Cholesterol 256 mg/dL (0-200); Estimated Glomerular Filt Rate > 60; Glucose 144 mg/dL (70-99); HDL Direct 68 mg/dL (40-60); LDL Cholesterol Calculated 109 mg/dL (<130); Osmolality Calculated 296 mOsm/kg (285-295); Potassium 4.1 mmol/L (3.5-5.1); Sodium 141 mmol/L (136-145); Total Protein 7.1 g/dL (6.4-8.2); Triglycerides 394 mg/dL (0-150)
[2023-09-27 08:20] LABS: Hemoglobin A1C 5.1 % (<5.7)
[2023-09-28 15:35] LABS: Vitamin D 25 Hydroxy 52 ng/mL (30-100)
== END 2023-09-26 14:54 | disposition home or self-care (01) ==
LOC: CHSLAB 14:55
PROVIDERS: PCP Family Medicine; Visit Provider Nurse Practitioner Family
DX: Z13.6 Encounter for screening for cardiovascular disorders (principal); Z79.899 Other long term (current) drug therapy; R73.9 Hyperglycemia, unspecified; I10 Essential (primary) hypertension; Z68.34 Body mass index [BMI] 34.0-34.9, adult
CPT/HCPCS: 36415; 80053; 80061; 82306; 83036; 85025

== ENCOUNTER 2024-01-09 10:49 | Observation (INO) | payer OTHER, SELFPAY ==
[2024-01-09] VITALS (9 sets, daily range): BP systolic 100–156; BP diastolic 67–94; PULSE 62–83; RESP 15–20; TEMP 36.7–37.2; O2SAT 97–100; BMI 35.3
--- NOTE | ~2024-01-09 | XR_ITS ---
EXAMINATION: XR chest 1V DATE: 01/09/2024 12:10 INDICATION: Weakness. Left facial numbness. TECHNIQUE: A single frontal view of the chest was obtained. COMPARISON: Chest 2 views 07/17/2017 FINDINGS: There is no pneumonia, pleural effusion, or pneumothorax. The heart size is normal. IMPRESSION: 1. No acute cardiopulmonary disease. Reviewed, dictated and finalized at location A.
--- NOTE | ~2024-01-09 | MR_ITS ---
EXAMINATION: MR brain/brain stem wo/w con DATE: 01/09/2024 16:02 INDICATION: Left-sided facial paralysis. TECHNIQUE: Magnetic resonance imaging (MRI) of the brain and brainstem was performed without and with 18 mL MultiHance intravenous contrast. COMPARISON: Brain MRI 11/27/2015, head CT 01/09/2024 FINDINGS: There are scattered areas of nonspecific increased T2-weighted signal intensity in the cere bral white matter, which is within normal limits for the patient's age. There is no intracranial hemo rrhage, acute infarction, or abnormal intracranial mass lesion. The ventricles are normal in size. Th ere is asymmetric enhancement of left facial nerve from the distal internal auditory canal to the mas toid segment, consistent with Goldberg palsy. There is a small left mastoid effusion. The orbits are norm al. The paranasal sinuses are clear. IMPRESSION: 1. Left-sided Goldberg palsy. Reviewed, dictated and finalized at location A.
--- NOTE | ~2024-01-09 | CT_ITS ---
EXAMINATION: CTA brain carotid DATE: 01/09/2024 12:04 INDICATION: Left facial weakness. TECHNIQUE: Computed tomographic angiography (CTA) of the head was performed without and with 100 mL O mnipaque-350 intravenous contrast. CTA of the neck was performed with intravenous contrast. Automated exposure control and iterative reconstruction technique were employed. The dose-length product was 1 708.16 mGy-cm. Maximum intensity projection and volume rendered 3D-reconstructions were created by angelita romero technologist on a separate workstation. COMPARISON: None. FINDINGS: HEAD CTA: There is no intracranial hemorrhage, acute infarction, or abnormal intracranial mass lesion . The ventricles are normal in size. The orbits are normal. There is mild mucosal thickening in the p aranasal sinuses. There is a small left mastoid effusion. The vertebral arteries are codominant. Ther e is no significant stenosis of basilar artery or the posterior cerebral arteries. The posterior comm unicating arteries are normal. There is no significant stenosis of the intracranial internal carotid arteries or anterior or middle cerebral arteries. Anterior to indicating artery is normal. NECK CTA: There are no pathologically enlarged lymph nodes. There is a 7 mm nodule in right thyroid l obe, likely not clinically significant. There is no significant stenosis of the vertebral arteries. T here is plaque in the proximal internal carotid arteries. There is 0% stenosis of the proximal right internal carotid artery relative to normal distal artery lumen diameter (NASCET criteria). There is 0 % stenosis of the proximal left internal carotid artery relative to normal distal artery lumen diamet er. There is severe cervical spondylosis. IMPRESSION: 1. Normal brain. No aneurysm or significant intracranial arterial stenosis. 2. 0% stenosis of the proximal internal carotid arteries relative to normal distal artery lumen diame ters (NASCET criteria). Reviewed, dictated and finalized at location A. IMPRESSION: 1. Normal brain. No aneurysm or significant intracranial arterial stenosis. 2. 0% stenosis of the proximal internal carotid arteries relative to normal dis veronica artery lumen diameters (NASCET criteria).
[2024-01-09 11:18] LABS: Glucose Point of Care 92 mg/dl (65-105)
[2024-01-09 11:32] LABS: Basophils Absolute Auto 0.1 K/mm3 (0.0-0.1); Basophils Percent Auto 1.1 % (0.2-1.2); Eosinophils Absolute Auto 0.2 K/mm3 (0-0.3); Eosinophils Percent Auto 2.5 % (0-4.4); Hemoglobin 14.8 g/dL (12.0-15.0); Immature Granulocyte Absolute 0.04 K/mm3 (0.00-0.031); Immature Granulocyte Percent A 0.5 % (0-0.5); Lymphocytes Absolute Auto 2.13 K/mm3 (0.9-3.2); Lymphocytes Percent Auto 26.4 % (18.3-44.2); Mean Corpuscular HGB Conc 34.4 g/dl (32-36); Mean Corpuscular Hemoglobin 31.5 pg (26-34); Mean Corpuscular Volume 91.5 fl (80-100); Mean Platelet Volume 9.4 fl (7.4-10.4); Monocytes Absolute Auto 0.8 K/mm3 (0.1-0.6); Monocytes Percent Auto 9.4 % (2.6-8.5); Neutrophils Absolute Auto 4.9 K/mm3 (1.3-6.7); Neutrophils Percent Auto 60.1 % (45.5-73.1); Platelet Count Result 199 k/mm3 (150-375); Red Cell Distribution Width 12.4 % (11.5-14.5); White Blood Count 8.1 K/mm3 (4.5-10.0)
[2024-01-09 11:42] LABS: INR 0.9; Prothrombin Time 12.6 Seconds (11.1-14.7)
[2024-01-09] MEDS: SODIUM CHLORIDE 0.9% IV 1,000 ML 999 ML IV CONT (11:42)
[2024-01-09 11:43] LABS: Alanine Aminotransferase 26 U/L (6-35); Albumin Level 4.8 g/dL (3.5-5.1); Alkaline Phosphatase 76 U/L (38-126); Anion Gap 8 mmol/L (4-12); Aspartate Amino Transferase 41 U/L (14-36); Bilirubin,Total 1.2 mg/dL (0.2-1.3); Blood Urea Nitrogen 21 mg/dL (7-17); Calcium 9.5 mg/dL (8.4-10.2); Carbon Dioxide 29 mmol/L (22-30); Chloride 95 mmol/L (98-107); Estimated CRCL calculation 66 ml/min; Estimated Glomerular Filt Rate > 60; Glucose 92 mg/dL (65-110); Magnesium 1.9 mg/dL (1.6-2.3); Partial Thromboplastin Time 27.5 Seconds (22.3-36.8); Potassium 3.4 mmol/L (3.4-5.0); Sodium 132 mmol/L (137-145)
[2024-01-09 11:54] LABS: Troponin I < 0.012 ng/mL (0.000-0.034)
[2024-01-09 12:44] LABS: Lactic Acid Reflex 0.6 mmol/L (0.7-2.0)
[2024-01-09 12:52] LABS: Appearance Urine Clear (Clear); Bacteria Urine 1+ /hpf; Bilirubin Urine Negative (Negative); Blood Urine Non-Hemolyzed Trace (Negative); Color Urine Yellow (Yellow); Glucose Urine UA Negative (Negative); Ketones Urine Negative (Negative); Leukocyte Esterase Ur Trace LEU/UL (Negative); Nitrate Urine Negative (Negative); Non Pathogenic Casts 0-2; Protein Urine Negative (Negative); RBC Urine 0-2 /hpf (0-2); Specific Grav Ur 1.028 (1.001-1.035); Squamous Epithelial Cell Urine Moderate /hpf (Few); Urobilinogen Urine 0.2 mg/dL (<2.0)
[2024-01-09 12:58] LABS: Add Urine Microscopic? YES
--- NOTE | 2024-01-09 13:20 | ED.GENADULT ---
HPI - General Adult General Chief complaint: Neuro Symptoms/Deficit Stated complaint: FACIAL NUMBNESS SINCE YESTERDAY Time Seen by Provider: 01/09/24 11:10 History of Present Illness HPI narrative: Patient is a 63-year-old female who presents emergency department with chief complaint of left-sided facial numbness and left-sided facial droop the patient also reports that her left tongue went numb during the episode as well the patient states started around 7:00 p.m. yesterday then started to get better but did not completely resolve and today her symptoms were worse. Related Data Home Medications Medication Instructions Recorded Confirmed ergocalciferol (vitamin D2) 1,250 1,250 mcg PO WEEKLY 10/03/21 10/26/23 mcg (50,000 unit) capsule aspirin 81 mg tablet,delayed 81 mg PO DAILY 09/25/22 10/26/23 release ezetimibe 10 mg tablet 10 mg PO DAILY 09/25/22 10/26/23 Allergies Allergy/AdvReac Type Severity Reaction Status Date / Time codeine Allergy Intermediate Rash Verified 10/26/23 07:38 Penicillins Allergy Intermediate Rash Verified 10/26/23 07:38 propoxyphene Allergy Mild n/v Verified 10/26/23 07:38 morphine Allergy Unknown Rash Verified 10/26/23 07:38 Sulfa (Sulfonamide Allergy Unknown Rash Verified 10/26/23 07:38 Antibiotics) Review of Systems Review of Systems: A 10 system review of systems was completed on the patient and is negative except for what is stated in the HPI. Nursing and ancillary documentation was reviewed. [facility] Past Medical History Medical History Asthma ALEJANDRA (generalized anxiety disorder) GERD without esophagitis HSV-1 infection Hypertension Marijuana smoker Obese Surgical History Surgical History History of carpal tunnel surgery (~1997) History of cholecystectomy (~08/2012) History of hysterectomy (~02/2001) Partial History of tonsillectomy (~1967) Family History Family History Grandparent Family history of obesity Family history of alcoholism Cerebrovascular accident Diabetes mellitus Lung cancer Mother Hypertension Family history of eczema Patient's mother is in good health Family history of arthritis Acute myocardial infarction Sibling Hypertension Family history of eczema Patient's brother is in good health Family history of irritable bowel syndrome Father Patient's father is in good health Family history of arthritis Mother Acute myocardial infarction Hypertension Other Asthma Family history of allergic disorder Family history of cardiovascular disease Family history of gout Family history of malignant neoplasm Family history of malignant neoplasm of breast Social History Social History Smoking status: Never smoker Tobacco type: cigarettes Smoking end date: 04/08/13 Alcohol intake: never Substance use: never Substance use type: does not use Living arrangements: with family Gender identity (if verbalized by the patient): Female Spiritual care concerns: No Exam Narrative: GENERAL: Well-appearing, well-nourished, and in no acute distress. HEAD: Normocephalic, atraumatic. EYES: PERRLA and EOMI. ENT: Nares clear, no rhinorrhea or epistaxis. Mucous membranes moist. NECK: Supple. CHEST: Clear to auscultation. No respiratory distress. HEART: Regular rate and rhythm. No murmur heard. Normal peripheral pulses. ABDOMEN: Soft, nontender, nondistended, normal active bowel sounds. EXTREMITIES: Normal range of motion. No edema. SKIN: Warm, dry, no rash. NEURO: Moves all extremities, left-sided facial droop, decreased sensation on the left side of the face. Alert and oriented x3. PSYCH: Normal mood and affect. Course Vital Signs Vital signs: Vital Signs Te
--- NOTE | 2024-01-09 14:29 | ADMGEN ---
This patient, Santiago Medina, was admitted to 2 Medical Room 256-. Patient/family oriented to hospital policies and general routines including ID bracelet, bed and alarms, visiting hours, pain management, procedures, bathroom and other care routines, personal items, smoking policy, room service/diet, and visiting hours. Information on how to activate the Rapid Response Team has been discussed. Patient/Family are encouraged to report perceived risks to care and to ask questions if they do not understand what they are told or what they should do.
--- NOTE | 2024-01-09 14:49 | PM.IMHP ---
H&P: HPI History of Present Illness Date/Time: 01/09/24 14:49 Chief Complaint: Facial Droop Narrative: 63 y/o F presents here with a left facial droop and numbness with PMH of asthma, ALEJANDRA, GERD, and HTN. The patient presents here from home for further evaluation of left facial numbness and left facial droop. Patient reports initial onset of symptoms on 01/07 at 7:00 a.m. while she was walking into work. Patient reports that the numbness and droop persisted through the day, felt she became somewhat used it. Patient took 81 mg of aspirin with no improvement. Then this morning when she woke up around 0700 am she noted the symptoms were still present and felt slightly worse. Left eye also now has blurred vision that started at the same time as the droop and numbness. Denying a focal numbness, focal weakness, dysphagia, dysarthria, word-finding difficulty, dizziness, or changes in gait. No previous history of CVA. Has previously been on a statin and had myalgias, also tried Repatha and had severe stomach pain. Initial VS at presentation: 99? F, HR 83, RR 16, 140/91, and 97% on RA. ED workup showed: No leukocytosis, no anemia, sodium 132, creatinine 0.8 and GFR >60, lactic 0.6, and initial troponin negative. CXR was unremarkable. CTA of the head/neck showed normal brain, no aneurysm, no significant articular stenosis, and 0% stenosis of the proximal ICAs. Review of Systems Review of Systems: All systems reviewed & are unremarkable except as noted in HPI and below PMFSH Past Medical History Medical History (Updated 01/09/24 @ 15:07 by Apoorva Degroot APRN) Anxiety and depression Asthma Fibromyalgia ALEJANDRA (generalized anxiety disorder) GERD (gastroesophageal reflux disease) History of colon polyps HSV-1 infection Hypertension Insomnia Marijuana smoker Obese FÉLIX (obstructive sleep apnea) Surgical History Surgical History History of carpal tunnel surgery (~1997) History of cholecystectomy (~08/2012) History of hysterectomy (~02/2001) Partial History of tonsillectomy (~1967) Family History Family History Grandparent Family history of obesity Family history of alcoholism Cerebrovascular accident Diabetes mellitus Lung cancer Mother Hypertension Family history of eczema Patient's mother is in good health Family history of arthritis Acute myocardial infarction Sibling Hypertension Family history of eczema Patient's brother is in good health Family history of irritable bowel syndrome Father Patient's father is in good health Family history of arthritis Mother Acute myocardial infarction Hypertension Other Asthma Family history of allergic disorder Family history of cardiovascular disease Family history of gout Family history of malignant neoplasm Family history of malignant neoplasm of breast Social History Social History Smoking status: Never smoker Alcohol intake: never Substance use: never Substance use type: does not use Do You Feel Safe in your Home?: Yes Lack of Transportation: No Lack of Food: Never True Current Housing: I Have Housing Concerned About Future Housing: No Difficulty Paying Gas/Electric Bills: No Difficulty Paying for Meds: No Currently Unemployed: No Education: Associate Degree Difficulty w/ Childcare or Family Care: No Living arrangements: with family Gender identity (if verbalized by the patient): Female Spiritual care concerns: No Meds Home Medications and Allergies Home Medications Medication Instructions Recorded Confirmed Type albuterol sulfate 90 mcg/actuation 1 inhalation inhalation Q4-6H PRN 05/21/19 01/09/24 Rx breath activated powder inhaler shortness of breath or wheezing #1 ea ergocalciferol (vitamin D2) 1,250 1,250
--- NOTE | 2024-01-09 14:59 | ECHO_ITS ---
Patient Info Name: Santiago Medina Age: 63 years : 1960 Gender: Female Ht: 62 in Wt: 193 lbs BSA: 2.00 m2 HR: 64 bpm BP: 137 / 94 mmHg Heart Rhythm: Sinus Rhythm Technical Quality: Fair Exam Date: 01/09/2024 3:57 PM Exam Location: Echo Lab Patient Status: Inpatient Admit Date: 01/09/2024 Staff Ordering Physician: Apoorva Degroot APRN [employer]: Abiola Garg RDCS Attending Provider: Manas Nguyen MD Referring Physician: Mikayla GONZALEZ; Exam Type: CA echo dop bubble study w con Study Info Indications - CVA workup Complete two-dimentional, color flow and Doppler transthoracic echocardiogram is performed with agitated saline and with contrast to opacify the left ventricle and to improve the delineation of the left ventricle endocardial borders. Contrast/Agitated Saline Contrast/Ag. Saline: Agitated Saline Amount: 20.00 ml Existing IV Access: Yes IV Access Condition: patent with no signs of infiltration Contrast/Ag. Saline: Definity Amount: 2.00 ml Administered By: Abiola Garg RDCS Existing IV Access: Yes IV Access Condition: patent with no signs of infiltration Summary 1. Definity contrast administered improved wall motion interpretation. 2. Left ventricular chamber dimension is normal. 3. Left ventricular systolic function is normal, estimated at 65-70%. 4. The left ventricular diastolic function is grade I diastolic dysfunction. 5. E/e' 13 is mildly elevated. 6. There is moderate aortic valve sclerosis. 7. The mitral valve has mildly calcified annulus. Left Ventricle E/e' 13 is mildly elevated. Definity contrast administered improved wall motion interpretation. Left ventricular chamber dimension is normal. Left ventricular systolic function is normal, estimated at 65-70%. The left ventricular diastolic function is grade I diastolic dysfunction. Right Ventricle Right ventricular systolic function is normal and with normal TAPSE 2.1 cm. Right ventricular chamber dimension is normal. Left Atria Left atrial chamber dimension is normal. Right Atria Right atrial chamber dimension is normal. Atrial Septum Agitated saline injection opacified right side cardiac chambers without shunt to left side cardiac chambers. Intact interatrial septum visualized by 2D and agitated saline imaging. Aortic Valve The aortic valve is trileaflet. There is moderate aortic valve sclerosis. There is no aortic valve stenosis. There is no aortic valve regurgitation. Pulmonic Valve There is no pulmonic regurgitation. Mitral Valve The mitral valve has mildly calcified annulus. There is no mitral valve stenosis. There is no mitral valve regurgitation. Tricuspid Valve There is no tricuspid valve regurgitation. Pericardium/Pleural There is no pericardial effusion. Inferior Vena Cava Normal inferior vena cava with >50% collapse upon inspiration consistent with normal right atrial pressure, 5 mmHg. Aorta The aortic root size at the sinus of Valsalva is normal. Left Ventricular Outflow Tract Name Value Normal LVOT 2D LVOT Diameter 2.0 cm LVOT Doppler LVOT Peak Gradient 7
[2024-01-09 15:17] LABS: Troponin I < 0.012 ng/mL (0.000-0.034)
[2024-01-09] MEDS: PERFLUTREN LIPID MICROSPHERES 1.5 ML VIAL DILUTED TO 10 ML TOTAL VOLUME IV PUSH (16:49)
--- NOTE | 2024-01-09 17:03 | IVDEFINITY ---
Prior to administration of IV Definity the patient was educated on the risks and benefits of the imaging enhancing agent including potential adverse side effects. The patient verbalized understanding. Allergies were verified. No exclusion criteria were identified and at least one of the following inclusion criteria were met: 1) physician request, 2) patient technically difficult to image (per the [place] [employer]ocardi[employer] guidelines of two or more segments not discernable within the apical view), or 3) questionable left ventricular function. ?
[2024-01-09] MEDS: DULoxetine HCL 30 MG CAPSULE.DR PO (17:25)
[2024-01-09] MEDS: SPIRONOLACTONE 50 MG TABLET PO (17:25)
[2024-01-09] MEDS: CLOPIDOGREL BISULFATE 75 MG TABLET PO (17:25)
[2024-01-09] MEDS: hydroCHLOROthiazide 25 MG TABLET 50 MG PO (17:25)
--- NOTE | 2024-01-09 23:36 | PCRCNOTE ---
pt unable to wear cpap due to nasal mask is too big. Pt states she requires a size small nasal mask. RT dept only carries med and large. Pt attempted med nasal mask but could not tolerate. Pt unable to tolerate full face mask.
[2024-01-10] VITALS: PULSE 59
[2024-01-10] MEDS: ARTIFICIAL TEARS OPHTH SOLN 15 ML BOTTLE 1 DROP EACH EYE (00:08)
[2024-01-10 04:00] VITALS: PULSE 63
[2024-01-10 05:20] VITALS: BP 111/70; PULSE 62; RESP 18; TEMP 36.3; O2SAT 97
[2024-01-10 05:30] LABS: Basophils Absolute Auto 0.1 K/mm3 (0.0-0.1); Basophils Percent Auto 1.1 % (0.2-1.2); Eosinophils Absolute Auto 0.3 K/mm3 (0-0.3); Eosinophils Percent Auto 3.5 % (0-4.4); Hematocrit 42.1 % (37.0-47.0); Hemoglobin 14.4 g/dL (12.0-15.0); Immature Granulocyte Absolute 0.03 K/mm3 (0.00-0.031); Immature Granulocyte Percent A 0.4 % (0-0.5); Lymphocytes Absolute Auto 1.92 K/mm3 (0.9-3.2); Lymphocytes Percent Auto 23.8 % (18.3-44.2); Mean Corpuscular HGB Conc 34.2 g/dl (32-36); Mean Corpuscular Hemoglobin 31.4 pg (26-34); Mean Corpuscular Volume 91.7 fl (80-100); Mean Platelet Volume 9.4 fl (7.4-10.4); Monocytes Absolute Auto 0.9 K/mm3 (0.1-0.6); Monocytes Percent Auto 10.7 % (2.6-8.5); Neutrophils Absolute Auto 4.9 K/mm3 (1.3-6.7); Neutrophils Percent Auto 60.5 % (45.5-73.1); Platelet Count Result 192 k/mm3 (150-375); Red Blood Count 4.59 M/mm3 (4.2-5.4); Red Cell Distribution Width 12.5 % (11.5-14.5); White Blood Count 8.1 K/mm3 (4.5-10.0)
[2024-01-10 05:41] LABS: Anion Gap 5 mmol/L (4-12); Blood Urea Nitrogen 16 mg/dL (7-17); Calcium 9.9 mg/dL (8.4-10.2); Carbon Dioxide 30 mmol/L (22-30); Chloride 100 mmol/L (98-107); Estimated CRCL calculation 66 ml/min; Estimated Glomerular Filt Rate > 60; Glucose 98 mg/dL (65-110); Potassium 3.5 mmol/L (3.4-5.0); Sodium 135 mmol/L (137-145)
--- NOTE | 2024-01-10 05:53 | PC.NURSE ---
DOCUMENTATION ON THIS PATIENT COMPLETED BY ROMAN SUERO LPN. REVIEWED AND MONITORED BY MYSELF BRITTANY GRANGER RN
[2024-01-10 08:00] VITALS: PULSE 73
[2024-01-10] MEDS: predniSONE 20 MG TABLET 60 MG PO (08:29)
[2024-01-10] MEDS: EZETIMIBE 10 MG TABLET PO (08:29)
[2024-01-10] MEDS: hydroCHLOROthiazide 25 MG TABLET 50 MG PO (08:29)
[2024-01-10] MEDS: DULoxetine HCL 30 MG CAPSULE.DR PO (08:30)
[2024-01-10] MEDS: SPIRONOLACTONE 50 MG TABLET PO (08:30)
[2024-01-10] MEDS: ASPIRIN 81 MG ENTERIC TABLET PO (08:30)
--- NOTE | 2024-01-10 09:31 | PM.DS ---
DS: Admitting Diagnosis Discharge Date 01/10/2024 Admitting Diagnosis facial droops DS: Discharge Diagnosis Discharge Diagnosis (1) Facial droop: Code(s): R29.810 - Facial weakness Status: Acute DS: Summary Hospital Course Reason for hospitalization: facial droops Hospital Course: H&W-RYR-[id number]: 63 y/o F presents here with a left facial droop and numbness with PMH of asthma, ALEJANDRA, GERD, and HTN. The patient presents here from home for further evaluation of left facial numbness and left facial droop. Patient reports initial onset of symptoms on 01/07 at 7:00 a.m. while she was walking into work. Patient reports that the numbness and droop persisted through the day, felt she became somewhat used it. Patient took 81 mg of aspirin with no improvement. Then this morning when she woke up around 0700 am she noted the symptoms were still present and felt slightly worse. Left eye also now has blurred vision that started at the same time as the droop and numbness. Denying a focal numbness, focal weakness, dysphagia, dysarthria, word-finding difficulty, dizziness, or changes in gait. No previous history of CVA. Has previously been on a statin and had myalgias, also tried Repatha and had severe stomach pain. Initial VS at presentation: 99? F, HR 83, RR 16, 140/91, and 97% on RA. ED workup showed: No leukocytosis, no anemia, sodium 132, creatinine 0.8 and GFR >60, lactic 0.6, and initial troponin negative. CXR was unremarkable. CTA of the head/neck showed normal brain, no aneurysm, no significant articular stenosis, and 0% stenosis of the proximal ICAs. patient with left sided facial drops is found to have bells palsy, patient was started on prednisone, patient stats her symptoms feeling little better. patient is clinically stable, will discharge today Patient is instructed no driving until seen by her primary care provider, patient to follow up with her primary care provider as soon as possible. Patient is instructed if any symptoms redevelop to go to nearest ER. patient is instructed keep the left eye close to prevent dryness may use artificial tears. Time Spent with Patient Time attestation: Total time spent providing and/or coordinating discharge services: Exam Narrative: GENE: comfortable, NAD HEENT: eyes clear non icteric, patient able to blink her left, there is slight facial asymmetry. HEART: RR S1S2 LUNGS: CTA ABD:obese EXT: no edema> SKIN: no obvious rash NEURO: grossly intact. DS: Data Data Completed and Pending Labs on day of discharge: Labs from last 24 hours 01/10/24 01/09/24 01/09/24 05:12 14:47 12:39 WBC 8.1 RBC 4.59 Hgb 14.4 Hct 42.1 MCV 91.7 MCH 31.4 MCHC 34.2 RDW 12.5 Plt Count 192 MPV 9.4 Immature Gran % (Auto) 0.4 Neut % (Auto) 60.5 Lymph % (Auto) 23.8 [place] % (Auto) 10.7 H Eos % (Auto) 3.5 Baso % (Auto) 1.1 Lymph # (Auto) 1.92 [place] # (Auto) 0.9 H Eos # (Auto) 0.3 Baso # (Auto) 0.1 Abs Immat Gran (auto) 0.03 Absolute Neuts (auto) 4.9 Absolute Nucleated RBC 0.000 Nucleated RBC % 0.0 PT INR APTT Sodium 135 L Potassium 3.5 Chloride 100 Carbon Dioxide 30 Anion Gap 5 BUN 16 Creatinine 0.80 Estim Creat Clear Calc 66 Estimated GFR > 60 Glucose 98 POC Capillary Glucose Lactic Acid Calcium 9.9 Magnesium Total Bilirubin AST ALT Alkaline Phosphatase Troponin I < 0.012 Total Protein Albumin Procalcitonin Urine Color Yellow Urine Appearance Clear Urine pH 6.0 Ur Specific [place] 1.028 Urine Protein Negative Urine Glucose (UA) Negative Urine Ketones Negative Ur Blood (Man) Non-hemolyzed trace H Urine Nitrate Negative Urine Bilirubin Negative Urine Urobilinogen 0.2 Leukocyte Esterase Rfl Trace H Urine RBC 0-2 Urine WBC 6-10 H Ur Squamous Epith Cells Moderate Urine Bacte
== END 2024-01-10 10:35 | disposition home or self-care (01) ==
LOC: ANHED 13:26 → ANH2MED 13:47
PROVIDERS: Student in an Organized Health Care Education/Training Program; Admitting Provider Family Medicine; Emergency Provider Emergency Medicine; PCP Family Medicine; Visit Provider Family Medicine
DX: R29.810 Facial weakness (principal); R20.0 Anesthesia of skin; R82.90 Unspecified abnormal findings in urine; J45.909 Unspecified asthma, uncomplicated; G47.33 Obstructive sleep apnea (adult) (pediatric); I10 Essential (primary) hypertension; F41.1 Generalized anxiety disorder; K21.9 Gastro-esophageal reflux disease without esophagitis; E66.9 Obesity, unspecified; Z68.35 Body mass index [BMI] 35.0-35.9, adult; Z79.82 Long term (current) use of aspirin; Z87.891 Personal history of nicotine dependence; Z79.85 Long-term (current) use of injectable non-insulin antidiabetic drugs; Z79.51 Long term (current) use of inhaled steroids
CPT/HCPCS: 36415; 70496; 70498; 70553; 71045; 80048; 80053; 81001; 82948; 83605; 83735; 84145; 84484; 85025; 85610; 85730; 87086; 96360; 96368; 96375; 99285; A9270; A9577; C8929; G0378; J7030; J7512; Q9957; Q9967

== ENCOUNTER 2024-06-19 15:57 | Outpatient (CLI) | payer OTHER, SELFPAY ==
--- NOTE | ~2024-06-19 | XR_ITS ---
EXAMINATION: XR shoulder LT min 2V DATE: 06/19/2024 16:14 INDICATION: Generalized left shoulder pain post fall TECHNIQUE: AP internally and externally rotated, AP oblique externally rotated and transscapular Y vi ews of the left shoulder were obtained. COMPARISON: None FINDINGS: Normal alignment. No fracture. Glenohumeral joint is normal. Moderate acromioclavicular osteoarthrit is. Moderate to severe lower cervical spondylosis. Soft tissues are unremarkable. Visualized portion of the lungs are clear. IMPRESSION: 1. Moderate left acromioclavicular osteoarthritis. No acute osseous abnormality. 2. Moderate to severe cervical spondylosis. Reviewed, dictated and finalized at location A. TS PHYSICAL THERAPIST IMPRESSION: 1. Moderate left acromioclavicular osteoarthritis. No acute osseous abnormality . 2. Moderate to severe cervical spondylosis.
--- NOTE | ~2024-06-19 | XR_ITS ---
EXAMINATION: XR heel LT min 2V, XR heel RT min 2V DATE: 06/19/2024 16:14 INDICATION: Bilateral heel pain TECHNIQUE: 1. Lateral and axial views of the left calcaneus were obtained. 2. Lateral and axial views of the right calcaneus were obtained. COMPARISON: None. FINDINGS: Alignment is normal at the visualized bilateral hindfeet. No fracture. Joint spaces are relatively pr eserved. No osteophytes, cortical erosions or periosteal reaction. Soft tissues are unremarkable with no ankle joint effusions. IMPRESSION: 1. Negative bilateral heel radiographs. Reviewed, dictated and finalized at location A. R SLAGMAN IMPRESSION: 1. Negative bilateral heel radiographs.
== END 2024-06-19 15:58 | disposition home or self-care (01) ==
PROVIDERS: PCP Nurse Practitioner Family; Visit Provider Nurse Practitioner Family
DX: M76.60 Achilles tendinitis, unspecified leg (principal); M25.512 Pain in left shoulder; M19.012 Primary osteoarthritis, left shoulder
CPT/HCPCS: 73030; 73650

== ENCOUNTER 2024-12-16 16:55 | Outpatient (RCR) | payer OTHER, SELFPAY ==
--- NOTE | 2024-12-16 17:58 | OPREHPOC ---
Outpatient Therapy Plan of Care This is a Multidisciplinary Plan of Care that may contain components documented by all disciplines (PT, OT, and ST.) PT Problem 1 PT Problem #1 Knowledge Deficit PT Goal 1 Goal / Goal Update The patient will demonstrate independence with a home exercise program. Target Visit 4 PT Problem 2 PT Problem #2 Pain PT Goal 1 Goal / Goal Update The patient will report no greater than 3/10 left shoulder and neck pain with reaching and lifting overhead. Target Visit 12 PT Problem 3 PT Problem #3 Impaired Functional Mobility PT Goal 1 Goal / Goal Update The patient will demonstrate 20% or less self perceived disability per the Quick DASH questionnaire. The patient will lift 5 lbs overhead without increased pain or numbness to improve ability to reach in overhead cabinets. Target Visit 12 PT Problem 4 PT Problem #4 Impaired Strength PT Goal 1 Goal / Goal Update The patient will demonstrate 4/5 left shoulder strength to improve lifting ability. PT Problem 5 PT Problem #5 Impaired Sensation PT Goal 1 Goal / Goal Update The patient will report resolved numbness in the right UE. Target Visit 12
--- NOTE | 2024-12-16 17:58 | PTOPEVAL1 ---
Assessment and note entered by Delilah East, PT Evaluation Information Assessment Status Evaluation ICD-10 Condition Codes (PT) Radiculopathy, cervical M54.13,Pain in left shoulder M25.512 Onset 12/10/24 Subjective Information Santiago Medina reports that she started having left shoulder pain in June 2024 when she tried to push up from her left arm out of bed. She felt a tear in the shoulder and had difficulty moving it. She still has to use a pillow to support her left arm when sleeping. She had a x-ray that was normal and she had a cortisone injection. She is noting less pain and improved mobility in the left shoulder since the injection but she does not lift high with the left arm or reach behind her back. She started having numbness in the right arm on 10/07/24 for unknown reasons. She has limitations with moving her arm to the side and overhead and when she moves her head to the side. She also has pain in the front of the right shoulder. She has not had any treatment or diagnostic tests for the cervical spine. She is having difficulty sleeping and completing daily tasks secondary to pain in the left shoulder and numbness in the right arm. Reported Pain Level Pain Score 0,0: Self Report Assessment PT Clinical Summary Santiago Medina presents with left shoulder pain and right UE numbness. She has had left shoulder pain since June 2024 and R arm parathesias since . She has difficulty with moving her head, raising both arms overhead, reaching behind the back on the left, reaching behind the head on the left, and sleeping. She objectively demonstrates poor posture, tenderness in the right upper trapezius, decreased and painful left shoulder AROM, decreased cervical AROM, decreased left shoulder strength, and positive special tests consistent with cervical nerve impingement and left shoulder rotator cuff tendonopathy. She will benefit from skilled PT to address these limitations. Plan of Care Interventions Electrical Stimulation,Hot Pack/Cold Pack,Manual Therapy,Mechanical Traction,Neuro Re-education, Patient/Caregiver Education,Therapeutic Activities ,Therapeutic Exercise PT Services Indicated Yes Treatment Frequency and 3 times a week for 12 visits Duration These treatments will address the objective and functional deficits as defined above. The patient will be advanced safely and appropriately in order for the patient to progress towards his/her prior level of function. Additional exercises will be introduced and as well as a comprehensive home exercise program upon discharge, if needed, ?to ensure carryover of functional gains achieved in the clinic. This treatment plan has been reviewed and agreement upon by the patient.
--- NOTE | 2025-02-17 08:41 | PTOPDC ---
Assessment and note entered by Delilah East, PT Evaluation Information Assessment Status Discharge - Pt Not Present ICD-10 Condition Codes (PT) Radiculopathy, cervical M54.13,Pain in left shoulder M25.512 Onset 12/10/24 Subjective Information Santiago Medina was seen for 2 visits for cervical radiculopathy and left shoulder pain. Assessment PT Clinical Summary Santiago Medina attended 2 PT visits for cervical radiculopathy and left shoulder pain. She has not been seen since 12/18/24. She will be discharged. Plan of Care PT Services Indicated No
== END 2024-12-18 20:00 | disposition home or self-care (01) ==
LOC: CHSPT 16:55
PROVIDERS: PCP Nurse Practitioner Family; Visit Provider Nurse Practitioner Family
DX: M25.512 Pain in left shoulder (principal); M54.12 Radiculopathy, cervical region
CPT/HCPCS: 97012; 97014; 97110; 97161; G0283

== ENCOUNTER 2025-03-10 14:33 | Outpatient (CLI) | payer OTHER, SELFPAY ==
--- OUTSIDE RECORDS SUMMARY | 2025-03-10 14:44 | XMS_ITS | Clinical Summary ---
Author Organization [facility] Address [facility] [place] [address] Care Team Providers Care Tank Welder Name Role Phone Unavailable Primary Care Provider Unavailabl e Social History Tobacco Use Types Packs/Day Years Used Date Smoking Tobacco: Never Assessed Comments Unknown Sex and Gender Information Value Date Recorded Sex Assigned at Not on file Legal Sex Female 12:05 AM CDT Gender Identity Not on file Sexual Orientation Not on file Plan of Treatment Health Maintenance Due Date Last Done Comments Cervical Cancer Screening Pa p Smear (Age 30 to 64) Every 3 Years 1962 Colorectal Cancer Screening Colonoscopy (10 Years) 1962 Annual Physical 1965 Hepatitis C 1980 DTaP, Tdap and Td Vaccines ( 1 - Tdap) 1981 Cervical Cancer Screening Pa p with HPV Testing (Age 30 to 64) Every 5 Years 1992 Cervical Cancer Screening with HPV 1992 Mammogram Screening 2002 Pneumococcal Vaccine: 50+ Ye ars (1 of 1 - PCV) 2012 Zoster Vaccines (1 of 2) 2012 COVID-19 Vaccine (2023-2 5 season) 2024 RSV Immunization or 60+ Years (1 - 1-dose 75+ series) 2037 Meningococcal B Vaccine Aged Out No l onger eligible based on patient's age to complete this topic Meningococcal Vaccine Aged Out No jia lauren eligible based on patient's age to complete this topic RSV Immunizations Under 20 Months Aged Out No longer eligible based on patient's age to complete this topic
--- OUTSIDE RECORDS SUMMARY | 2025-03-10 14:44 | XMS_ITS | Clinical Summary ---
Author Organization [facility] Address [address] [place] [address] Phone Care Team Providers Care Vocational Rehab Consultant Name Role Phone Umberto Simmons MD Primary Care Provider [phone] Medications No known medications Active Problems Problem Noted Date Diagnosed Date Major depressive disorder, s jena episode, mild with anxious distress 01/14/2018 Family History Medical History Relation Name Comments Hypertension Brother 1 No Known Problems Father Heart Attack Mother Hypertension Mother Rashes/Skin Problems Mother Relation Name Status Comments Brother 1 Alive Brother 2 Alive Brother 3 Alive Father Alive Mother Alive Social History Tobacco Use Types Packs/Day Years Used Date Smoking Tobacco: Former Smokeless Tobacco: Never Comments:Quit 6 years ago Alcohol Use Standard Drinks/Week Comments No 0 (1 standard drink = 0.6 oz pur e alcohol) Stopped in August 2017 Comments Unknown Sex and Gender Information Value Date Recorded Sex Assigned at Not on file Legal Sex Female 10:45 AM CDT Gender Identity Not on file Sexual Orientation Not on file Plan of Treatment Health Maintenance Due Date Last Done Comments Hepatitis C Virus (HCV) Screening 1962 Cologuard 2007 Colonoscopy 2007 Colorectal Cancer Screening 2007 Immunochemical Fecal Occult Blood 2007 Pneumococcal Immunization (5 0+ years) (1 of 1 - PCV) 2012 Zoster Immunization (1 of 2) 2012 Influenza Immunization (#1) 2025 06/13/2013 SARS-COV-2 Immunization ( season) 2025 05/27/2021, 10/05/2020, 09/14/2020 Respiratory Syncytial Virus (RSV) Immunization (Adult) (1 - 1-dose 75+ series) 2037 DTaP/Tdap/Td Immunization Discontinued 12/24/2014 TdaP Immunization Completed 12/24/2014 Hepatitis B Immunization Aged Out No longer eligible based on patient's age to complete this topic Human Papillomavirus (HPV) Immunization Aged Out No longer eligible based on patient's age to complete this topic Meningococcal Immunization (ACWY) Aged Out No longer eligible based on patient's age to complete this topic Rotavirus Immunization Aged Out No lo nger eligible based on patient's age to complete this topic Insurance Care Teams Vocational Rehab Consultant Relationship Specialty Start Date End Date Umberto Simmons MD [address] [id number] PCP - General Internal Medicine 01/11/18
[2025-03-10 15:40] LABS: MALB Creatinine Ratio 29.1 mg/g (0-30)
[2025-03-10 16:20] LABS: Hemoglobin A1C 5.7 % (<5.7)
== END 2025-03-10 14:34 | disposition home or self-care (01) ==
LOC: CHSLAB 14:34
PROVIDERS: PCP Nurse Practitioner Family; Visit Provider Internal Medicine Cardiovascular Disease
DX: I25.10 Atherosclerotic heart disease of native coronary artery without angina pectoris (principal)
CPT/HCPCS: 36415; 82043; 83036

== ENCOUNTER 2025-04-03 09:53 | Outpatient (CLI) | payer OTHER, SELFPAY ==
--- NOTE | ~2025-04-03 | CT_ITS ---
EXAMINATION:CT lung screening DATE: 04/03/2025 10:05 INDICATION: Personal history of nicotine dependence. TECHNIQUE: Computed tomography (CT) of the chest was performed without intravenous contrast. Automated exposure control and iterative reconstruction technique were employed. The dose-length product (DLP) was 117.98 mGy-cm. COMPARISON: None. FINDINGS: There are a few nodules in the lungs bilaterally measuring up to 3 mm. There is a 4 mm nodule in right lower lobe. No pleural effusion. The heart size is normal. There are coronary artery calcifications. No pericardial effusion. There are changes of cholecystectomy. There is severe cervical spondylosis and mild thoracic spondylosis. IMPRESSION: 1. Lung-RADS category 2: Benign appearance or behavior. Continue annual screening with noncontrast low-dose chest CT in 12 months. Reviewed, dictated and finalized at location E. IMPRESSION: 1. Lung-RADS category 2: Benign appearance or behavior. Continue annual screeni ng with noncontrast low-dose chest CT in 12 months.
--- OUTSIDE RECORDS SUMMARY | 2025-04-03 09:59 | XMS_ITS | Clinical Summary ---
Author Organization [facility] Address [address] [place] [address] Phone Care Team Providers Care Flame Annealing Machine Setter Name Role Phone Umberto Simmons MD Primary Care Provider [phone] Medications No known medications Active Problems Problem [...] to complete this topic Insurance Care Teams Flame Annealing Machine Setter Relationship Specialty Start Date End Date Umberto Simmons MD [address] [phone] PCP - General Internal Medicine 01/11/18
--- OUTSIDE RECORDS SUMMARY | 2025-04-03 09:59 | XMS_ITS | Clinical Summary ---
Author Organization [facility] Address [facility] [place] [address] Care Team Providers Care Reinforcer Name Role Phone Unavailable Primary Care Provider [...] Vaccines (1 of 2) 2012 COVID-19 Vaccine ( - 2023-2 5 season) 2025 RSV Immunization or 60+ Years (1 - [...]
== END 2025-04-03 09:54 | disposition home or self-care (01) ==
LOC: CHSIMG 09:54
PROVIDERS: PCP Nurse Practitioner Family; Visit Provider Internal Medicine Cardiovascular Disease
DX: Z12.2 Encounter for screening for malignant neoplasm of respiratory organs (principal); Z87.891 Personal history of nicotine dependence
CPT/HCPCS: 71271

== ENCOUNTER 2025-05-14 13:52 | Outpatient (CLI) | payer OTHER, SELFPAY ==
--- OUTSIDE RECORDS SUMMARY | 2025-04-29 05:30 | XMS_ITS | Continuity of Care Document ---
Author Organization [facility] Address [address] [place] [address] Phone Care Team Providers Care Pharmacy Analyst Name Role Phone Shazia MEJIA, FACC, AMISHA, Karan Unavailable U navailable Allergies, Adverse Reactions, Alerts Substance Reaction Status Criticality evolocumab Active No Information lisinopril Active No Information topiramate Active No Information PHENTERMINE HCL Active No Informati on NALTREXONE HCL Active No Informatio n BUPROPION HCL Active No Information simvastatin Active No Information ATORVASTATIN CALCIUM Active No Info rmation Sulfa (Sulfonamide Antibiotics) Active No Information morphine Active No Information amoxicillin Active No Information Pcwzdtd-QTC-IvE Reductase Inhibitors Acti ve No Information Medications Medication Instructions Dosage Effective Dates (start - stop) Status Comments Zepbound 7.5 mg/0.5 mL subcutaneous pen injector inject (7.5MG) by subcutaneous route every week 7.5 MG - Active spironolactone 100 mg tablet TAKE 1 TABLET BY MOUTH EVERY DAY - Active Tricor 145 mg tablet take 1 tablet by oral route every day 145 MG - Active EZETIMIBE 10 MG TABLET TAKE 1 TABLET BY MOUTH EVERY DAY - Active cyanocobalamin (vitamin B-12) 1,000 mcg capsule - Active Aspirin Childrens 81 mg chewable tablet chew 1 tablet by oral route every day 81 MG - Active duloxetine 30 mg capsule,delayed release - No Longer Active Procedures Procedure Date OFFICE/OUTPATIENT VISIT, EST OFFICE/OUTPATIENT VISIT, EST ELECTROCARDIOGRAM, COMPLETE Advance Directives Directive Yes / No Effective Date File Name No Information Encounters Encounter Description Practice Location Reason(s) For Visit Diagnoses Date Provider Providers Copied on Encounter OFFICE/OUTPAT IENT VISIT, [facility] , [address] [place] [address], [id number] , [place] tel: [phone] [facility] Follow Up of cardiology exam (chief complaint)SOB occasionally (chief complaint)rap id heart rate occasionally (chief complaint) Arteriosclerosis of habematolel coronary artery w/o angina pectoris 5 Shazia Russo. [address] [place] [address], [id number] , . tel: [phone] Referring Provider: Karan Mccray, [address] [place] [address], [id number] . tel:[phone] OFFICE/OUTPAT IENT VISIT, [facility] , [address] [place] [address], [id number] , tel: [phone] [facility] Follow Up of cardiology exam (chief complaint)SOB occasionally (chief complaint)rap id heart rate occasionally (chief complaint) Arteriosclerosis of habematolel coronary artery w/o angina pectoris 5 Shazia Russo. [address] [place] [address], [id number] , . tel: [phone] Referring Provider: Karan Mccray, [address] [place], [place] [address], [address] . tel:[phone] [facility] , [address] [place] [address], [id number] , tel: [phone] [facility] No Information 5 Shazia Russo. [address] [place] [address], [id number] , . tel: [phone] Family History Family Member Type Diagnosis Age At Onset No Information Payers Payer name Insurance type Covered alliance party ID Authorhieua tiaby(s) [facility] [id number] Social History Type Description Quantity Date Captured Comments Alcohol Use Details Unknown Caffeine Use Details Unknown Tobacco Use Status No Information Smoking Status No Information Sex Female Vital Signs Date / Time: Height Weight BMI Pulse Rate Blood Pressure Temperature Respiratory Rate Body Surface Area Head Circumference Head Circ. Percentile Wt./Zain. Percentile BMI percentile Pulse Ox Inhaled Ox 11:41 AM 62.00 in 81.193 kg (179.00 lbs) 32.7 4 kg/m eter (2) 65 /min 139/92 mm[Hg] 1.88 meter(2) 98 % Chief Complaint And Reason For Visit From encounter dated '04/29/2025 11:30'. Follow Up of cardiology exam (chief complaint) SOB occasionally (chief complaint) rapid heart rate occasionally (chief complaint) Reason For Referral Reason For Referral No Information Plan Of Treatment Date Type Action Status Appointment Santiago Medina BOOKED Future Order: Radiology Order Ca lcium Score ([id number]), Ordered on: Ordered Future Order: Lab Order Lipid Pa desiree ([id number]), Ordered on: Ordered Future Order: Lab Order Hemoglob in A1c ([id number]), Ordered on: Ordered Future Order: Lab Order Microalb /Creat Ratio, Randm Ur ([id number]), Ordered on: Ordered Future Order: Radiology Order Ec hocardiogram, Complete Transthoracic ([id number]), Ordered on: Ordered Future Order: Radiology Order Lo w Dose CT ([id number]), Ordered on: Ordered History Of Present Illness Encounter Date Complaint History Of Prese nt Illness Follow Up of cardiology exam SOB occasionally rapid heart rate occasionally Follow Up of cardiology exam SOB occasionally rapid heart rate occasionally Functional Status Date Functional Assessmen t No Information Instructions Date Instruction Additional Infor mation No Information Assessments Type Assessment Date assessment Arteriosclerosis of habematolel coron hever artery w/o angina pectoris Patient Care Teams Name Effective Dates (start - stop) Status Members No Information
--- NOTE | ~2025-05-14 | MM_ITS ---
EXAMINATION: MM screening terri BI w beena HISTORY: Screening TECHNIQUE: Craniocaudal and mediolateral oblique 3-D tomosynthesis images were obtained and synthetic 2-D images were generated. CAD analysis was submitted and interpreted. COMPARISON: Comparison to multiple prior studies sequentially, with oldest reviewed study dated 08/17/2022. BREAST PARENCHYMAL COMPOSITION: Dense: The breasts are heterogeneously dense, which may obscure small masses FINDINGS: There is no evidence of suspicious mass, calcification, or architectural distortion to suggest malignancy in either breast. There has been no suspicious interval change. IMPRESSION: 1. No mammographic evidence of malignancy. 2. Recommend routine screening mammography in one year. BI-RADS Category 1: Negative Reviewed, dictated and finalized at location O. SIFTER
--- OUTSIDE RECORDS SUMMARY | 2025-05-14 20:17 | XMS_ITS | Clinical Summary ---
Author Organization [facility] Address [address] [place] [address] Phone Care Team Providers Care Etymology Professor Name Role Phone Umberto Simmons MD Primary Care Provider [phone] Medications No known medications Active Problems Problem [...] to complete this topic Insurance Care Teams Etymology Professor Relationship Specialty Start Date End Date Umberto Simmons MD [address] [id number] PCP - General Internal Medicine 01/11/18
--- OUTSIDE RECORDS SUMMARY | 2025-05-14 20:17 | XMS_ITS | Clinical Summary ---
Author Organization [facility] Address [facility] [place] [address] Care Team Providers Care Geothermal Plant Manager Name Role Phone Unavailable Primary Care Provider [...] Vaccines (1 of 2) 2012 COVID-19 Vaccine (2024-2 6 season) 2025 Influenza Adult (#1) 2025 RSV Immunization or 60+ Years (1 - 1-dose 75+ series) 2037 Hepatitis A Vaccines Aged Out No long er eligible based on patient's age to complete this topic Meningococcal B Vaccine Aged Out No l onger eligible based on patient's age to complete this topic Meningococcal Vaccine Aged Out No jia lauren eligible based on patient's age to complete this topic RSV Immunizations Under 20 Months Aged Out No longer eligible based on patient's age to complete this topic
== END 2025-05-14 13:53 | disposition home or self-care (01) ==
LOC: CHSIMG 13:52
PROVIDERS: PCP Nurse Practitioner Family; Visit Provider Nurse Practitioner Family
DX: Z12.31 Encounter for screening mammogram for malignant neoplasm of breast (principal)
CPT/HCPCS: 77063; 77067